=== PATIENT | female | born 1980 | race Caucasian/White ===

== ENCOUNTER 2016-11-09 10:06 | Emergency (ER) | payer BC ==
[~2016-11-09] VITALS: Ht 152.4 cm; Wt 88.5 kg
[2016-11-09] MEDS ORDERED: ZYRTEC10 M4 PO (10:38)
[2016-11-09] MEDS ORDERED: FERROUS SULFAT325 M1 PO (10:38)
== END 2016-11-09 10:35 | disposition short-term general hospital (02) ==
LOC: ER 10:06
DX: K52.9 Noninfective gastroenteritis and colitis, unspecified (principal)